=== PATIENT | female | born 1990 | race Two or more races ===

== ENCOUNTER 2022-01-14 17:04 | Emergency (ER) | payer BC, OTHER ==
[~2022-01-14] VITALS: Ht 167.6 cm; Wt 61.2 kg
--- NOTE | 2022-01-14 17:10 | NUR ---
PATIENT A/O X4. EVEN AND UNLABORED BREATHING ON RA. STATED THAT SHE WAS SENT FROM URGENT CARE FOR ABNORMAL EKG. PER PT SHE IS HAVING CHEST PAIN.
--- NOTE | 2022-01-14 17:10 | NUR ---
PLACED ON PARCEL POST DELIVERY
[2022-01-14 18:54] LABS: CARBON DIOXIDE 27 mmol/L (21-32); CHLORIDE 107 mmol/L (98-107); CREATININE 0.7 mg/dL (0.6-1.3); GLUCOSE 106 mg/dL (74-106); POTASSIUM 3.5 mmol/L (3.5-5.1); SODIUM SERUM 141 mmol/L (136-145); UREA NITROGEN, BLOOD 15 mg/dL (7-18)
--- NOTE | 2022-01-14 20:01 | NUR ---
FOLLOWED UP WITH LAB REGARDING CBC. 15 MORE MINUTES
[2022-01-14 20:13] LABS: BASOPHILS % (AUTO) 0.3 % (0.0-2.0); EOSINOPHILS % (AUTO) 0.2 % (0.0-6.0); HEMATOCRIT 38 % (33-45); HEMOGLOBIN 13.1 g/dL (11.5-14.8); LYMPHOCYTES # (AUTO) 1.1 K/uL (0.8-4.8); LYMPHOCYTES % (AUTO) 23.3 % (20.0-44.0); MEAN CORPUSCULAR HGB CONC 34 g/dl (31.0-36.0); MEAN CORPUSCULAR VOLUME 98 fL (82-100); MONOCYTES # (AUTO) 0.2 K/uL (0.1-1.30); MONOCYTES % (AUTO) 3.9 % (2.0-12.0); NEUTROPHILS # (AUTO) 3.3 K/uL (1.8-8.9); NEUTROPHILS % (AUTO) 72.3 % (43.0-81.0); PLATELET COUNT (AUTO) 227 K/uL (150-450); RED BLOOD CELL COUNT(AUTO) 3.91 MIL/uL (4.0-5.2); WHITE BLOOD COUNT (AUTO) 4.6 K/uL (4.3-11.0)
[2022-01-14 20:37] VITALS: BP 128/77
--- NOTE | 2022-01-14 20:37 | NUR ---
Patient discharged to home in stable condition. Written and verbal after care instructions given. Patient verbalizes understanding of instruction.
== END 2022-01-14 20:38 | disposition home or self-care (01) ==
LOC: ER 17:04
DX: R07.89 Other chest pain (principal); Z60.2 Problems related to living alone
CPT/HCPCS: 36415; 71045-TC; 80048-TC; 84484-TC; 85025-TC

== ENCOUNTER 2022-05-11 18:29 | Inpatient (IN) | payer BC, MEDICAID ==
[~2022-05-11] VITALS: Ht 170.2 cm; Wt 64.4 kg
--- NOTE | 2022-05-11 19:07 | NUR ---
BIB FAMILY C/O ABDOMINAL PAIN SINCE THIS MORNING, HAD A SYNCOPAL EPISODE BIB FAMILY C/O ABDOMINAL PAIN SINCE THIS MORNING, HAD A SYNCOPAL EPISODE 1 HOUR AGO. +NAUSEA, -VOMITING. PT A/OX4. TOLERATING R/A WITH NO RESP DISTRESS. CONNECTED PT TO POX AND MONITOR. SAFETY MEASURES IN PLACE.
[2022-05-11 19:16] LABS: CALCIUM, SERUM 9.5 mg/dL (8.5-10.1); CREATININE 0.7 mg/dL (0.6-1.3); POTASSIUM 3.7 mmol/L (3.5-5.1)
[2022-05-11 19:22] LABS: ALBUMIN 4.6 g/dL (3.4-5.0); BILIRUBIN,DIRECT 0.3 mg/dL (0.0-0.2); BILIRUBIN,TOTAL 1.3 mg/dL (0.2-1.0)
--- NOTE | 2022-05-11 19:27 | NUR ---
OFFERED PT URINE CUP; NOT ABLE TO GIVE URINE SAMPLE AT THIS TIME
--- NOTE | 2022-05-11 19:47 | NUR ---
DR. BETY RAMOS AT PT'S BEDSIDE
[2022-05-11] MEDS ORDERED: IV NS 0.9% 1,000 ML BAG IV ONE (20:00)
[2022-05-11] MEDS ORDERED: MORPHINE SULFATE INJ 2 MG/ML DISP.SYRIN IV ONE (20:00)
[2022-05-11] MEDS ORDERED: ONDANSETRON HCL/PF 4 MG/2 ML VIAL IVP ONE (20:00)
[2022-05-11] MEDS ORDERED: MORPHINE SULFATE INJ 4 MG/ML DISP.SYRIN ONE (20:02)
[2022-05-11] MEDS ORDERED: ONDANSETRON HCL/PF 4 MG/2 ML VIAL ONE (20:02)
--- NOTE | 2022-05-11 20:14 | NUR ---
US TECH AT PT'S BEDSIDE
--- NOTE | 2022-05-11 20:32 | NUR ---
URINE COLLECTED SENT TO LAB
--- NOTE | 2022-05-11 20:33 | NUR ---
[facility] FORM SIGNED
[2022-05-11 20:39] LABS: BASOPHILS % (AUTO) 0.1 % (0.0-2.0); EOSINOPHILS % (AUTO) 0.1 % (0.0-6.0); HEMATOCRIT 38 % (33-45); HEMOGLOBIN 12.6 g/dL (11.5-14.8); LYMPHOCYTES # (AUTO) 1.8 K/uL (0.8-4.8); LYMPHOCYTES % (AUTO) 15.4 % (20.0-44.0); MEAN CORPUSCULAR HGB CONC 33 g/dl (31.0-36.0); MEAN CORPUSCULAR VOLUME 97 fL (82-100); MONOCYTES # (AUTO) 0.8 K/uL (0.1-1.30); MONOCYTES % (AUTO) 6.4 % (2.0-12.0); NEUTROPHILS # (AUTO) 9.3 K/uL (1.8-8.9); PLATELET COUNT (AUTO) 265 K/uL (150-450); RED BLOOD CELL COUNT(AUTO) 3.89 MIL/uL (4.0-5.2); WHITE BLOOD COUNT (AUTO) 11.9 K/uL (4.3-11.0)
--- NOTE | 2022-05-11 20:57 | NUR ---
PT TAKEN TO CT VIA [facility]O
[2022-05-11 21:02] LABS: BILIRUBIN,URINE NEGATIVE (NEGATIVE); COLOR,URINE YELLOW (YELLOW); LEUKOCYTE ESTERASE ,URINE NEGATIVE (NEGATIVE); NITRITE, URINE NEGATIVE (NEGATIVE); PH,URINE 8.5 (5.0-8.0); PROTEIN,URINE 100 mg/dl (NEGATIVE); UGLUCOSE NEGATIVE (NEGATIVE); UROBILINOGEN,URINE 0.2 EU/dL (0.2)
--- NOTE | 2022-05-11 21:16 | NUR ---
DR. BETY RAMOS ON PHONE CALL WITH DR. MOLINA BARAHONA
--- NOTE | 2022-05-11 21:24 | NUR ---
COVID ANTIGEN AND MRSA SWAB VIA [facility] COLLECTED AND SENT TO LAB
[2022-05-11 21:38] LABS: BACTERIA,URINE RARE /HPF (None Seen); RBC,URINE 0-2 /HPF (0-2); URINE AMORPHOUS PHOSPHATES Moderate /HPF (None Seen); WBC,URINE 0-2 /HPF (0-3)
--- NOTE | 2022-05-11 22:05 | NUR ---
REPORT GIVEN TO DELIO Luis RN FOR ALIX
--- NOTE | 2022-05-11 22:26 | NUR ---
DR. MOLINA BARAHONA AT PT'S BEDSIDE
[2022-05-11] MEDS: MORPHINE SULFATE INJ 4 MG/ML DISP.SYRIN IV PRN (22:49)
--- NOTE | 2022-05-11 22:51 | NUR ---
PT SIGNED CONSENT FOR LAPARASCOPIC CYSTECTOMY POSSIBLE OOPHRECTOMY, BLOOD TRANSFUSION, ANESTHESIA, AND COVID AGREEMENT
[2022-05-11] MEDS ORDERED: IV LR 1000 ML 1,000 ML IV ONE (23:00)
[2022-05-11] MEDS ORDERED: FENTANYL PF 100MCG/2ML AMPUL ONE (23:16)
[2022-05-11] MEDS ORDERED: MIDAZOLAM HCL 2 MG/2ML VIAL ONE (23:17)
[2022-05-11] MEDS ORDERED: ANESTHESIA TRAY IN PYXIS 1 EA TRAY MC ONE (23:17)
[2022-05-11] MEDS ORDERED: ROCURONIUM BROMIDE 50 MG/5 ML ONE (23:17)
[2022-05-11] MEDS ORDERED: MAGNESIUM HYDROXIDE 30 ML UDC PO PRN (23:30)
[2022-05-11] MEDS ORDERED: ONDANSETRON HCL/PF 4 MG/2 ML VIAL IVP PRN (23:30)
[2022-05-11] MEDS ORDERED: ACETAMINOPHEN 325 MG TABLET PO PRN (23:30)
--- NOTE | 2022-05-11 23:52 | NUR ---
OR NURSE AT PT'S BEDSIDE TO TRANSFER PT TO SURGERY. VSS. ALL BELONGINGS WITH PT.
[2022-05-12] VITALS (8 sets, daily range): BP systolic 100–121; BP diastolic 54–65
[2022-05-12] MEDS ORDERED: BACITRACIN ZINC OINT PACKET 1 EA PACKET TP ONE (00:11)
[2022-05-12] MEDS ORDERED: BUPIVACAINE MPF 0.5% W/EPI INJ 30 ML VIAL ONE (00:12)
[2022-05-12] MEDS ORDERED: BUPIVACAINE 0.5 % PF 150 MG/30 ML VIAL ONE (00:12)
[2022-05-12] MEDS ORDERED: LIDOCAINE 1% INJ 50 ML MDV IJ ONE (00:12)
[2022-05-12] MEDS ORDERED: FENTANYL PF 100MCG/2ML AMPUL ONE (00:46)
--- NOTE | 2022-05-12 02:30 | NUR ---
RN ADMITTING NOTE PATIENT FROM OR S/P R OOPHORECTOMY. PATIENT GROGGY FROM ANESTHESIA BUT STILL A/O X 4. ABLE TO MAKE NEEDS KNOWN. PATIENT IS ON RA, TOLERATING WELL. NO SOB OR DYSPNEA NOTED. PATIENT HAS 3 INCISIONS ON HER ABDOMEN COVERED IN DRESSING, NO BLEEDING NOTED. PATIENT REPORTS PAIN 10/10 ON ABDOMEN, WILL MANAGE PAIN APPROPRIATELY. RAC 20 G PATENT AND INTACT, FLUSHING WELL. VSS STABLE AT THIS TIME. SAFETY MEASURES IN PLACE: BED LOCKED AND IN LOWEST POSITION, CALL LIGHT WITHIN REACH, SIDE RAILS UP. WILL MONITOR PATIENT CLOSELY.
[2022-05-12] MEDS ORDERED: MORPHINE SULFATE INJ 2 MG/ML DISP.SYRIN IV PRN (03:00)
[2022-05-12] MEDS: IV LR 1000 ML 1,000 ML IV PRN ×2 (03:05→13:37)
[2022-05-12] MEDS: MORPHINE SULFATE INJ 4 MG/ML DISP.SYRIN IV PRN ×3 (03:06→11:51)
--- NOTE | 2022-05-12 03:06 | NUR ---
MORPHINE 4 MG GIVEN FOR PAIN ON ABDOMEN 06/09. PATIENT TOLERATING SMALL SIPS OF WATER AT THIS TIME.
--- NOTE | 2022-05-12 06:15 | NUR ---
RN NOTE PATIENT HAS NOT PASSED GAS AT THIS TIME BUT FELS PRESSURE ON HER ABDOMEN LIKE THERE'S A LOT OF AIR. OFFERED MEDICATION TO PATIENT BUT REFUSED STATES SHE DOES NOT NEED TO PASS BOWELS, PATIENT ALSO HAS NOT URINATED. PALPATED FOR BLADDER DISTENTION. NONE NOTED, PATIENT ALSO DOES NOT HAVE ANY URGE TO URINATE.
--- NOTE | 2022-05-12 06:54 | NUR ---
RN CLOSING NOTE PATIENT IN BED, EYES CLOSED. ROUSED WITH VERBAL AND TOUCH STIMULI. PATIENT IS ON RA, TOLERATING WELL. NO SOB NOTED, BREATHING EVEN AND UNLABORED. PATIENT HAS A RAC 20 G WITH LR AT 125 ML/HR ONGOING. PAIN MANAGED WITH MORPHINE 4 MG IV. THE THREE DRESSINGS ON ABDOMEN C/D/I. PATIENT NOT IN ANY APPARENT DISTRESS. SAFETY MEASURES IN PLACE: BED LOCKED AND IN LOWEST POSITION, CALL LIGHT WITHIN REACH, SIDE RAILS UP. ALL NEEDS MET AND ATTENDED. ALL ORDERS CARRIED OUT. WILL ENDORSE TO DAY SHIFT NURSE FOR ALIX.
[2022-05-12 06:56] LABS: HEMATOCRIT 28 % (33-45); LYMPHOCYTES # (AUTO) 0.4 K/uL (0.8-4.8); LYMPHOCYTES % (AUTO) 5.3 % (20.0-44.0); MEAN CORPUSCULAR HGB CONC 35 g/dl (31.0-36.0); MEAN CORPUSCULAR VOLUME 98 fL (82-100); MONOCYTES # (AUTO) 0.1 K/uL (0.1-1.30); MONOCYTES % (AUTO) 1.5 % (2.0-12.0); NEUTROPHILS # (AUTO) 7.8 K/uL (1.8-8.9); NEUTROPHILS % (AUTO) 93.2 % (43.0-81.0); PLATELET COUNT (AUTO) 194 K/uL (150-450); WHITE BLOOD COUNT (AUTO) 8.3 K/uL (4.3-11.0)
--- NOTE | 2022-05-12 07:30 | NUR ---
RN OPENING NOTE RECEIVED PATIENT IN BED AWAKE . PATIENT IS ON RA, TOLERATING WELL. NO SOB NOTED, BREATHING EVEN AND UNLABORED. PATIENT HAS A RAC 20 G WITH LR AT 125 ML/HR ONGOING. THE THREE DRESSINGS ON ABDOMEN C/D/I. PATIENT NOT IN ANY APPARENT DISTRESS. SAFETY MEASURES IN PLACE: BED LOCKED AND IN LOWEST POSITION, CALL LIGHT WITHIN REACH, SIDE RAILS UP. WILL CONTINUE TO MONITOR.
[2022-05-12 07:31] LABS: HEMOGLOBIN 9.9 g/dL (11.5-14.8)
[2022-05-12] MEDS: PANTOPRAZOLE 40 MG TABLET.DR PO SCH (07:53)
[2022-05-12 07:56] LABS: CALCIUM, SERUM 8.2 mg/dL (8.5-10.1); CREATININE 0.7 mg/dL (0.6-1.3); MAGNESIUM 1.8 mg/dL (1.8-2.4); PHOSPHORUS 3.5 mg/dL (2.5-4.9); POTASSIUM 3.8 mmol/L (3.5-5.1)
[2022-05-12] MEDS: DOCUSATE SODIUM 100 MG CAPSULE PO SCH ×2 (08:51→16:58)
[2022-05-12] MEDS: SIMETHICONE 80 MG TAB.CHEW PO PRN ×2 (12:48→20:57)
--- NOTE | 2022-05-12 19:30 | NUR ---
RN CLOSING NOTE PATIENT IN BED AWAKE . PATIENT IS ON RA, TOLERATING WELL. NO SOB NOTED, BREATHING EVEN AND UNLABORED. PATIENT HAS A RAC 20 G WITH LR AT 125 ML/HR ONGOING. THE THREE DRESSINGS ON ABDOMEN C/D/I. NO BLEEDING NOTED. ALL DUE MEDS GIVEN ORDERED, PATIENT NOT IN ANY APPARENT DISTRESS. ALL SAFETY MEASURES IN PLACE: BED LOCKED AND IN LOWEST POSITION, CALL LIGHT WITHIN REACH, SIDE RAILS UP. WILL ENDORSE FOR ALIX.
--- NOTE | 2022-05-12 19:40 | NUR ---
MS RN OPENING NOTES PATIENT RECEIVED RESTING IN BED COMFORTABLY; PATIENT A/OX4, ABLE TO MAKE NEEDS KNOWN; FAMILY AT BEDSIDE; PATIENT BREATHING EVEN AND UNLABORED; NO SOB NOTED; TOLERATING ROOM AIR WELL; PATIENT COMPLAINT OF FEELING GASSY AND FEELS FULL, PRN MEDS WILL BE GIVEN TO PROVIDE COMFORT; PATIENT ALSO REQUESTING FOR ROOM CHANGE D/T ROOMMATE CONSTANTLY GETTING IN AND OUT OF BED, LOUD BED ALARM; PATIENT UNABLE TO SLEEP; WILL TRANSFER TO ROOM 326-2; R AC #20G INTACT AND PATENT, FLUSHING WELL; NO S/S OF REDNESS OR INFILTRATION NOTED; TOLERATING IVF WELL; SAFETY PRECAUTIONS IMPLEMENTED; BED LOCKED IN LOW POSITION; SIDE RAILSX2, CALL LIGHT WITHIN EASY REACH; WILL CONT PLAN OF CARE
[2022-05-12] MEDS: HYDROCODONE/APAP 5/325MG TABLET PO PRN (20:57)
[2022-05-13] MEDS: HYDROCODONE/APAP 5/325MG TABLET PO PRN ×2 (01:12→08:14)
[2022-05-13] MEDS: IV LR 1000 ML 1,000 ML IV PRN (05:29)
[2022-05-13 06:48] LABS: BASOPHILS % (AUTO) 0.2 % (0.0-2.0); EOSINOPHILS % (AUTO) 0.6 % (0.0-6.0); HEMATOCRIT 25 % (33-45); HEMOGLOBIN 8.3 g/dL (11.5-14.8); LYMPHOCYTES % (AUTO) 43.1 % (20.0-44.0); MEAN CORPUSCULAR HGB CONC 34 g/dl (31.0-36.0); MEAN CORPUSCULAR VOLUME 99 fL (82-100); MONOCYTES # (AUTO) 0.4 K/uL (0.1-1.30); MONOCYTES % (AUTO) 9.4 % (2.0-12.0); NEUTROPHILS # (AUTO) 2.2 K/uL (1.8-8.9); NEUTROPHILS % (AUTO) 46.7 % (43.0-81.0); PLATELET COUNT (AUTO) 164 K/uL (150-450); RED BLOOD CELL COUNT(AUTO) 2.47 MIL/uL (4.0-5.2); WHITE BLOOD COUNT (AUTO) 4.7 K/uL (4.3-11.0)
--- NOTE | 2022-05-13 07:02 | NUR ---
MS RN CLOSING NOTES PATIENT RESTING IN BED COMFORTABLY; PATIENT A/OX4, ABLE TO MAKE NEEDS KNOWN; PATIENT BREATHING EVEN AND UNLABORED; NO SOB NOTED; TOLERATING ROOM AIR WELL; R AC #20G INTACT AND PATENT, FLUSHING WELL; NO S/S OF REDNESS OR INFILTRATION NOTED; TOLERATING IVF WELL; ALL NEEDS RENDERED; PATIENT POSSIBLE D/C TODAY, WILL INFORM DAY SHIFT; SAFETY PRECAUTIONS IMPLEMENTED; BED LOCKED IN LOW POSITION; SIDE RAILSX2, CALL LIGHT WITHIN EASY REACH; WILL ENDORSE ALIX TO ONCOMING SHIFT
[2022-05-13] MEDS: PANTOPRAZOLE 40 MG TABLET.DR PO SCH (07:25)
[2022-05-13 07:28] LABS: CALCIUM, SERUM 8.3 mg/dL (8.5-10.1); CREATININE 0.7 mg/dL (0.6-1.3); PHOSPHORUS 3.7 mg/dL (2.5-4.9); POTASSIUM 3.8 mmol/L (3.5-5.1)
[2022-05-13 08:00] VITALS: BP 100/54
[2022-05-13] MEDS: DOCUSATE SODIUM 100 MG CAPSULE PO SCH (08:14)
[2022-05-13] MEDS ORDERED: SOD FERRIC GLUC 125 MG in IV NS 0.9% 100 ML IV SCH (14:00)
--- NOTE | 2022-05-13 14:30 | NUR ---
RN NOTES DISCHARGE PATIENT IN STABLE CONDITION WITH STABLE VITAL SIGNS. NO PAIN NOTED. NO SOB NOTED. NO DISTRESS NOTED. SURGERY SITES INTACT DRESSING. NO BLEEDING NOTED. ALL THE DISCHARGE INSTRUCTIONS GIVEN TO THE PATIENT. ALL THE BELONGINGS ACCOUNTED. THE PRESCRIPTION PAPER GIVEN TO THE PATIENT AND EXPLAINED THE MEDICATIONS. IV SITE REMOVED COVERED WITH DRY DRESSING. ID BAND REMOVED. PATIENT LEFT HOSPITAL AT 1430 IN STABLE CONDITION. MD AND CHARGE NURSE AWARE OF THE DISCHARGE.
== END 2022-05-13 15:00 | disposition home or self-care (01) | DRG 742 ==
LOC: ER 18:48 → MED 21:34
PROVIDERS: ADMIT Nurse Practitioner Acute Care; ATTEND Internal Medicine
PROC: 0UT04ZZ Resection of Right Ovary, Percutaneous Endoscopic Approach (ICD-10-PCS; principal; 2022-05-12)
DX: N83.201 Unspecified ovarian cyst, right side (principal); K66.1 Hemoperitoneum; D62 Acute posthemorrhagic anemia
CPT/HCPCS: 36415; 76856-TC; 80048-TC; 80076-TC; 81001; 83690-TC; 83735-TC; 84100-TC; 84702-TC; 84703-TC; 85025-TC; 87081-TC; 88305-TC; A6209; A6402; G0378; J0330; J0690; J1100; J1885; J2250; J2270; J2405; J2704; J2916; J3010; J3490; J7030; J7120

== ENCOUNTER 2022-06-18 12:37 | Emergency (ER) | payer BC, OTHER ==
[~2022-06-18] VITALS: Ht 170.2 cm; Wt 61.2 kg
--- NOTE | 2022-06-18 12:53 | NUR ---
BIBSelf , c/o pain left ovary a 06/09 , stated right ovary was recently removed / surgery - due to cyst & Inflammation
[2022-06-18] MEDS ORDERED: MORPHINE SULFATE INJ 4 MG/ML DISP.SYRIN ONE (13:14)
[2022-06-18] MEDS ORDERED: ONDANSETRON HCL/PF 4 MG/2 ML VIAL ONE (13:14)
[2022-06-18] MEDS ORDERED: IV NS 0.9% 1,000 ML BAG IV ONE (13:30)
[2022-06-18] MEDS ORDERED: ONDANSETRON HCL/PF 4 MG/2 ML VIAL IVP ONE (13:30)
[2022-06-18] MEDS ORDERED: MORPHINE SULFATE INJ 2 MG/ML DISP.SYRIN IV ONE (13:30)
[2022-06-18 13:45] LABS: BASOPHILS % (AUTO) 0.4 % (0.0-2.0); EOSINOPHILS % (AUTO) 0.6 % (0.0-6.0); HEMATOCRIT 39 % (33-45); HEMOGLOBIN 13.2 g/dL (11.5-14.8); LYMPHOCYTES # (AUTO) 1.6 K/uL (0.8-4.8); LYMPHOCYTES % (AUTO) 42.7 % (20.0-44.0); MEAN CORPUSCULAR HGB CONC 33 g/dl (31.0-36.0); MEAN CORPUSCULAR VOLUME 98 fL (82-100); MONOCYTES # (AUTO) 0.2 K/uL (0.1-1.30); MONOCYTES % (AUTO) 5.8 % (2.0-12.0); NEUTROPHILS # (AUTO) 1.9 K/uL (1.8-8.9); NEUTROPHILS % (AUTO) 50.5 % (43.0-81.0); PLATELET COUNT (AUTO) 249 K/uL (150-450); RED BLOOD CELL COUNT(AUTO) 4.01 MIL/uL (4.0-5.2); WHITE BLOOD COUNT (AUTO) 3.8 K/uL (4.3-11.0)
[2022-06-18 14:07] LABS: ALBUMIN 4.6 g/dL (3.4-5.0); BILIRUBIN,DIRECT 0.2 mg/dL (0.0-0.2); BILIRUBIN,TOTAL 0.7 mg/dL (0.2-1.0); CALCIUM, SERUM 9.3 mg/dL (8.5-10.1); CREATININE 0.7 mg/dL (0.6-1.3); TOTAL PROTEIN, SERUM 7.9 g/dL (6.4-8.2)
[2022-06-18 14:25] LABS: BILIRUBIN,URINE NEGATIVE (NEGATIVE); COLOR,URINE YELLOW (YELLOW); LEUKOCYTE ESTERASE ,URINE NEGATIVE (NEGATIVE); NITRITE, URINE NEGATIVE (NEGATIVE); PROTEIN,URINE NEGATIVE (NEGATIVE); UGLUCOSE NEGATIVE (NEGATIVE); UROBILINOGEN,URINE 0.2 EU/dL (0.2)
[2022-06-18 14:36] LABS: BACTERIA,URINE Few /HPF (None Seen); RBC,URINE 0-2 /HPF (0-2); SQUAMOUS EPITHELIAL CELL,UR Few /HPF (None Seen); WBC,URINE 0-2 /HPF (0-3)
[2022-06-18] MEDS ORDERED: NAPR-1164 PO (14:43)
[2022-06-18 16:41] VITALS: BP 125/71
--- NOTE | 2022-06-23 10:43 | NUR ---
IV START TIME - 1330 PM AND THE END TIME WAS 1430 PM
== END 2022-06-18 16:42 | disposition home or self-care (01) ==
LOC: ER 13:00
DX: R10.32 Left lower quadrant pain (principal); R10.2 Pelvic and perineal pain; Z88.0 Allergy status to penicillin; Z60.2 Problems related to living alone
CPT/HCPCS: 99284; 74176; 96374; 76856; 96361; 96375; 85025; 80048; 83690; 80076; 84703; 81001; 36415; J2270; J2405; J7030